=== PATIENT | male | born 1970 | race Caucasian/White ===

== ENCOUNTER 2016-08-30 04:47 | Emergency (ER) | payer BC, OTHER ==
[2016-08-30 05:02] VITALS: RESP 18
[2016-08-30] MEDS ORDERED: IBUPROFEN 400 MG TAB PO STA (05:22)
--- NOTE | 2016-08-30 05:28 | ED ---
Lower Extremity Injury HPI - General Chief Complaint: Extremity Injury, Lower Stated Complaint: fall [facility] Time Seen by Provider: 08/30/16 05:06 Source: patient Mode of arrival: ambulatory Limitations: no limitations - History of Present Illness Initial Comments: This patient is 46-year-old man who states that he was working tonight around 2 AM when he fell on a loading dock about 6 feet. He landed on his right foot and indicates that he has pain to the foot and ankle. He is not sure the exact mechanism that there was an inversion/eversion or other motion. The patient indicates pain from just above the malleoli down into the foot. He denies any loss of sensation. He states he is able to move his toes but has some pain when he moves his ankle. 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 Patient denies previous surgery to the foot or ankle. Patient states the pain is constant, aching, moderate, but worse if he attempts to bear weight. He has not noted any improving factors. MD Complaint: ankle injury, foot injury Onset/Timin -: hour(s) Injury: Ankle: Right, Foot: Right Type of Injury: unknown Place: work Severity: moderate Improves With: immobilization Worsens With: weight bearing Context: fall Associated Symptoms: able to partially bear weight - Related Data Home Medications Medication Instructions Recorded Confirmed Enalapril [Vasotec] 5 mg PO BID 08/30/16 08/30/16 Omeprazole 20 mg PO DAILY 08/30/16 08/30/16 metFORMIN HCL [Glucophage] 500 mg PO BID 08/30/16 08/30/16 Previous Rx's Medication Instructions Recorded Ibuprofen [Motrin] 800 mg PO Q8HR PRN #20 tab 08/30/16 Allergies Allergy/AdvReac Type Severity Reaction Status Date / Time No Known Allergies Allergy Verified 08/30/16 05:02 Review of Systems ROS Statement: Those systems with pertinent positive or pertinent negative responses have been documented in the HPI. ROS Other: All systems not noted in ROS Statement are negative. Constitutional: Denies: weakness Musculoskeletal: Reports: as per HPI, joint swelling, arthralgia. Denies: back pain Skin: Denies: rash Neurological: Denies: weakness, numbness Past Medical History Past Medical History: Diabetes Mellitus, GERD/Reflux, Hypertension History of Any Multi-Drug Resistant Organisms: None Reported Past Surgical History: Appendectomy, Cholecystectomy Past Psychological History: No Psychological Hx Reported Smoking Status: Never smoker Past Alcohol Use History: None Reported Past Drug Use History: None Reported General Exam Limitations: no limitations General appearance: alert, in no apparent distress GI/Abdominal exam: Present: other (Intact pedal pulses and normal capillary refill) Right Knee exam: Present: normal inspection, full ROM. Absent: tenderness, swelling Ankle exam: Present: tenderness, swelling. Absent: ecchymosis, deformity, crepitus, dislocation Foot/Toe exam: Present: tenderness, swelling. Absent: abrasion, laceration, ecchymosis, deformity, crepitus, dislocation Neurovascular tendon exam: Present: no vascular compromise. Absent: pulse deficit, abnormal cap refill, motor deficit, sensory deficit, pallor, abnormal 2 -point discrimination, decreased fine/light touch, significant pain with passive ROM of distal joint Neurological exam: Present: other (Sensation and motor function intact through the right foot). Absent: motor sensory deficit Skin exam: Present: warm, dry, intact, normal color. Absent: rash Course Vital Signs 08/30/16 04:58 Temperature 98.0 F Pulse Rate 104 H Respiratory 18 Rate Blood Pressure 130/85 O2 Sat by Pulse 98 Oximetry Disposition Clinical Impression: Ankle sprain and strain Disposition: HOME SELF-CARE Condition: Good Instructions: Ankle Sprain (ED) Prescriptions: Ibuprofen [Motrin] 800 mg PO Q8HR PRN #20 tab PRN Reason: Pain Referrals: Esteban Yee MD [Primary Care Provider] - 1-2 days
--- NOTE | 2016-08-30 06:20 | XR ---
EXAM: XR Right Tibia and Fibula, 2 Views. CLINICAL HISTORY: Ground-level fall, posterior right lower extremity pain. TECHNIQUE: Frontal and lateral views of the right tibia and fibula. COMPARISON: No relevant prior studies available. FINDINGS: Bones/joints: No displaced fracture. A patellar tendon enthesophyte is present. No dislocation. Soft tissues: Unremarkable. No radiopaque foreign body. IMPRESSION: 1. No displaced fracture. As some fractures may be occult on initial radiographs, if symptoms persist, recommend repeat evaluation in 10 days. 2. Please see right foot radiograph report for further detail.
--- NOTE | 2016-08-30 06:24 | XR ---
EXAM: XR Right Foot Complete, 3 or More Views. CLINICAL HISTORY: Ground level fall, pain TECHNIQUE: Frontal, lateral and oblique views of the right foot. COMPARISON: No relevant prior studies available. FINDINGS: Bones/joints: No displaced fracture or dislocation. Small calcific densities adjacent to the right medial malleolus likely reflect chronic ligamentous injury. Tiny avulsion fracture fragments would be considered less likely. Calcaneal enthesophytes are present. No tibiotalar joint effusion. Soft tissues: Unremarkable. No radiopaque foreign body. IMPRESSION: 1. No displaced fracture or traumatic malalignment. 2. Tiny calcific fragment adjacent to the medial malleolus likely reflect chronic ligamentous injury. Tiny avulsion fracture fragments would be considered much less likely, however, correlate with any focal tenderness to palpation. 3. No tibiotalar joint effusion. 4. As some fractures may be occult on initial radiographs, if symptoms persist, recommend repeat evaluation in 10 days.
[2016-08-30 06:46] VITALS: BP 127/70; PULSE 96; TEMP 97.8
== END 2016-08-30 07:44 | disposition home or self-care (01) ==
LOC: EC 04:47
DX: S93.401A Sprain of unspecified ligament of right ankle, initial encounter (principal); S99.921A Unspecified injury of right foot, initial encounter; I10 Essential (primary) hypertension; K21.9 Gastro-esophageal reflux disease without esophagitis; E11.9 Type 2 diabetes mellitus without complications; Z79.84 Long term (current) use of oral hypoglycemic drugs; Z79.899 Other long term (current) drug therapy; W17.89XA Other fall from one level to another, initial encounter; Y92.69 Other specified industrial and construction area as the place of occurrence of the external cause; Y99.0 Civilian activity done for income or pay
CPT/HCPCS: 99283

== ENCOUNTER → 2016-09-13 | Outpatient (CLI) | payer BC, OTHER ==
--- NOTE | 2016-09-15 12:45 | MR ---
Right ankle and right foot MRI HISTORY: Sprain right foot Multiplanar multisequence imaging obtained through the right foot and right ankle Correlation to right leg and right foot 30 August 2016 There is extensive subcutaneous edema present. There is a blanche tear of the Achilles tendon approximately 4 to 5 cm from the insertion on the java analyst ior calcaneus. Abnormal thickening of the tendon is present with mixed heterogeneous signal. Flexor a nd extensor tendons, peroneal longus and brevis tendons are intact. No evident joint effusion. Bone m arrow signal is maintained. Articular cartilage signal is normal. There is a plantar calcaneal spur. Plantar aponeurosis is intact. No Lisfranc fracture dislocation. IMPRESSION: Achilles tendon rupture
== END ==
LOC: RADMRIMAIN 19:34
PROVIDERS: ATTEND Emergency Medicine
DX: S86.011A Strain of right Achilles tendon, initial encounter (principal)

== ENCOUNTER 2016-10-22 17:44 | Emergency (ER) | payer BC, OTHER ==
[2016-10-22 17:57] VITALS: RESP 18
--- NOTE | 2016-10-22 18:42 | ED ---
General Adult HPI - General Chief complaint: Extremity Injury, Lower Stated complaint: positive for DVT Time Seen by Provider: 10/22/16 18:28 Source: patient, family, RN notes reviewed Mode of arrival: wheelchair Limitations: no limitations - History of Present Illness Initial comments: Patient is a pleasant 46-year-old male presenting to the emergency Department with DVT. Patient did have superficial thrombosis approximately 5 or 6 weeks ago and was treated with Xarelto for one week. Following that patient had Achilles tendon repair and was on Lovenox shots for a couple of weeks. Patient is not on any anticoagulation for the past few weeks. Patient has had swelling of his right leg over the past couple of days. Patient did see his orthopedic surgeon, Dr. Carpio today who did order ultrasound. Ultrasound was reported as positive. Patient states patient states his leg does feel somewhat better following cast removal. Patient denies any chest pain or dyspnea. - Related Data Home Medications Medication Instructions Recorded Confirmed Omeprazole 20 mg PO BID 08/30/16 10/22/16 Cholecalciferol [Vitamin D3] 1,000 unit PO DAILY 09/06/16 10/22/16 Ramipril [Altace] 5 mg PO BID 09/06/16 10/22/16 metFORMIN HCL ER [Glucophage Xr] 500 mg PO BID 10/22/16 10/22/16 Previous Rx's Medication Instructions Recorded Rivaroxaban [Xarelto Starter Pack] 1 each PO DIRECTED #1 package 10/22/16 Allergies Allergy/AdvReac Type Severity Reaction Status Date / Time No Known Allergies Allergy Verified 10/22/16 18:32 Review of Systems ROS Statement: Those systems with pertinent positive or pertinent negative responses have been documented in the HPI. ROS Other: All systems not noted in ROS Statement are negative. Constitutional: Denies: fever Eyes: Denies: eye pain ENT: Denies: ear pain Respiratory: Denies: cough, dyspnea Cardiovascular: Denies: chest pain, palpitations Endocrine: Denies: fatigue Gastrointestinal: Denies: abdominal pain Genitourinary: Denies: dysuria Musculoskeletal: Denies: back pain Skin: Denies: rash Neurological: Denies: headache Past Medical History Past Medical History: Diabetes Mellitus, GERD/Reflux, Hypertension History of Any Multi-Drug Resistant Organisms: None Reported Past Surgical History: Appendectomy, Cholecystectomy Additional Past Surgical History / Comment(s): right achilles tendon repair Past Psychological History: No Psychological Hx Reported Smoking Status: Never smoker Past Alcohol Use History: None Reported Past Drug Use History: None Reported General Exam Limitations: no limitations General appearance: alert, in no apparent distress Head exam: Present: atraumatic Eye exam: Present: normal appearance, PERRL ENT exam: Present: normal oropharynx Neck exam: Present: normal inspection Respiratory exam: Present: normal lung sounds bilaterally Cardiovascular Exam: Present: regular rate, normal rhythm GI/Abdominal exam: Present: soft. Absent: tenderness Extremities exam: Present: other (Right leg with food. There is minimal swelling of the visualized leg with mild discomfort. Distally cap refill less than 2 seconds. Patient is able to move toes. Good sensation.) Neurological exam: Present: alert. Absent: motor sensory deficit Psychiatric exam: Present: normal affect, normal mood Skin exam: Present: normal color Course Vital Signs 10/22/16 10/22/16 17:54 19:06 Temperature 98.7 F Pulse Rate 105 H 98 Respiratory 18 18 Rate Blood Pressure 114/81 134/60 O2 Sat by Pulse 98 97 Oximetry - Reevaluation(s) Reevaluation #1: 10/22/16 18:56 Case was discussed with Dr. Méndez, covering for Dr. Carpio who defers treatment to medicine. Case was discussed with Dr. Horta, covering for Dr. Yee. She recommends Xarelto twice a day 15 mg for 21 days then further medication per primary care physician. She also recommends close follow-up. 10/22/16 19:10 Recheck heart rate 98. Disposition Clinical Impression: Deep vein thrombosis (DVT) of right lower extremity Disposition: HOME SELF-CARE Condition: Stable Instructions: Deep Venous Thrombosis (ED) Additional Instructions: Continue Xarelto, prescription written. Please follow-up with Dr. Carpio and your primary care physician this week. Return for chest pain or difficulty breathing, increased leg swelling, worsening symptoms or any other concerns. Prescriptions: Rivaroxaban [Xarelto Starter Pack] 1 each PO DIRECTED #1 package Referrals: Esteban Yee MD [Primary Care Provider] - 1-2 days Osvaldo Carpio MD [Medical Doctor] - 1-2 days Time of Disposition: 18:57
[2016-10-22] MEDS ORDERED: RIVAROXABAN 15 MG TAB PO STA (19:10)
[2016-10-22 19:52] VITALS: BP 136/72; PULSE 97; TEMP 98.1
== END 2016-10-22 19:30 | disposition home or self-care (01) ==
LOC: EC 17:44
DX: I82.401 Acute embolism and thrombosis of unspecified deep veins of right lower extremity (principal); E11.9 Type 2 diabetes mellitus without complications; K21.9 Gastro-esophageal reflux disease without esophagitis; I10 Essential (primary) hypertension; Z79.84 Long term (current) use of oral hypoglycemic drugs; Z79.899 Other long term (current) drug therapy
CPT/HCPCS: 99283

== ENCOUNTER → 2016-10-22 | Outpatient (CLI) | payer OTHER ==
--- NOTE | 2016-10-22 17:45 | US ---
EXAMINATION TYPE: US venous doppler duplex LE DATE OF EXAM: 10/22/2016 5:18 PM COMPARISON: 09/06/2016 CLINICAL HISTORY: I80.9 Phlebitis/thrombophlebitis, Z86.728 Hx embolism. Right leg pain and swelling post achilles tendon repair SIDE PERFORMED: Bilateral TECHNIQUE: The lower extremity deep venous system is examined utilizing real time linear array sonog shazia with graded compression, doppler sonography and color-flow sonography. VESSELS IMAGED: External Iliac Vein (EIV) Common Femoral Vein Deep Femoral Vein Greater Saphenous Vein * Femoral Vein Popliteal Vein Proximal Calf Veins (* superficial vessels) Right Leg: Positive for DVT, extensive from groin through calf prox veins. Left Leg: Negative for DVT IMPRESSION: Grayscale, color doppler, spectral doppler imaging performed of the deep veins of the lo wer extremities. There is normal flow, compressibility, vascular waveforms bilaterally. There is ev idence of acute deep venous thrombosis in the right leg. This appears new compared to the recent exam of 09/06/2016. No evidence of deep venous thrombosis in the left leg.
== END ==
LOC: RADUSMAIN 16:51
PROVIDERS: ATTEND Orthopaedic Surgery
DX: S86.001A Unspecified injury of right Achilles tendon, initial encounter (principal); I82.401 Acute embolism and thrombosis of unspecified deep veins of right lower extremity
CPT/HCPCS: 93970

== ENCOUNTER → 2017-06-09 | Outpatient (CLI) | payer BC ==
[2017-06-09 10:20] LABS: Basophils % (A) 0 %; Eosinophils # (A) 0.1 k/uL (0-0.7); Eosinophils % (A) 2 %; HCT 43.3 % (39.0-53.0); HGB 14.6 gm/dL (13.0-17.5); Lymphocytes # (A) 1.9 k/uL (1.0-4.8); Lymphocytes % (A) 23 %; MCH 30.8 pg (25.0-35.0); MCHC 33.9 g/dL (31.0-37.0); Mean Platelet Volume 6.9; Monocytes # (A) 0.4 k/uL (0-1.0); Monocytes % (A) 5 %; Neutrophils # (A) 5.6 k/uL (1.3-7.7); Neutrophils % (A) 68 %; Platelet Count 283 k/uL (150-450); RBC 4.76 m/uL (4.30-5.90); RDW 11.8 % (11.5-15.5); WBC 8.3 k/uL (3.8-10.6)
[2017-06-09 10:30] LABS: Anion Gap 10 mmol/L; Blood Urea Nitrogen 18 mg/dL (9-20); Calcium 9.4 mg/dL (8.4-10.2); Carbon Dioxide 28 mmol/L (22-30); Chloride 100 mmol/L (98-107); Glucose 113 mg/dL (74-99); Potassium 4.8 mmol/L (3.5-5.1); Sodium 138 mmol/L (137-145)
== END | disposition home or self-care (01) ==
LOC: LABPAT 09:30
PROVIDERS: ATTEND Physician Assistant
DX: Z01.812 Encounter for preprocedural laboratory examination (principal); N20.0 Calculus of kidney; E11.9 Type 2 diabetes mellitus without complications
CPT/HCPCS: 36415; 80048; 85025

== ENCOUNTER 2017-06-16 08:05 | Day surgery (SDC) | payer BC ==
[2017-06-05 16:33] VITALS: BMI 32.5
[~2017-06-16 08:05] MED LIST: DEXAMETHASONE SOD PHOSPHATE 10 MG/ML 1 ML VIAL IV ONE; HYDROmorphone 0.5 MG/0.5 ML SYRINGE IVP PRN; LACTATED RINGERS 1,000 ML IV SCH; ONDANSETRON 4 MG/2 ML VIAL IVP ONE; Pre Op ABX Message 1 EACH MISC MISCELLANE ONE
--- NOTE | 2017-06-16 08:06 | XR ---
EXAMINATION TYPE: XR KUB DATE OF EXAM: 06/16/2017 CLINICAL DATA: 46-year-old male kidney stones, presurgical lithotripsy, [facility] COMPARISON: None FINDINGS: Nonobstructive bowel gas pattern. Lung bases are clear. Cholecystectomy clips. Mild to moderate stool in the right hemicolon. 4 calcifications in the left mid abdomen measuring up to 1.5 cm. Multiple pelvic phleboliths, left greater than right. IMPRESSION: Left-sided nephrolithiasis. 4 calculi are present, largest measuring 1.5 cm.
[2017-06-16 08:18] VITALS: RESP 18; TEMP 97.8
[2017-06-16 08:41] LABS: Glucose,Whole Blood 135 mg/dL (75-99)
[2017-06-16] MEDS ORDERED: KETAMINE 10 MG/ML 20 ML VIAL ONE (09:40)
[2017-06-16] MEDS ORDERED: MIDAZOLAM 2 MG/2 ML VIAL ONE (09:40)
[2017-06-16] MEDS ORDERED: GLYCOPYRROLATE 0.2 MG/ML 2 ML VIAL ONE (09:40)
[2017-06-16] MEDS ORDERED: PROPOFOL 10 MG/ML 20 ML VIAL IV ONE (09:40)
[2017-06-16] MEDS ORDERED: fentaNYL (PF) 50 MCG/ML 2 ML AMP ONE (09:40)
--- NOTE | 2017-06-16 10:36 | P.OP ---
Date of Procedure: 06/16/17 Preoperative Diagnosis: Left renal calculi Postoperative Diagnosis: Left renal calculi Procedure(s) Performed: Extracorporal shockwave lithotripsy-left renal calculus Anesthesia: MAC Surgeon: Robe Smith Estimated Blood Loss (ml): 0 Pathology: none sent Condition: stable Disposition: PACU Indications for Procedure: The patient is a 46-year-old male who was noted to have several left renal calculi on renal ultrasound performed in 08/2016. KUB shows a 15x8 mm calculus in the left renal pelvis and several smaller stones in the left lower pole. Treatment options were reviewed with Dr Lagunas and ESWL has been chosen. Description of Procedure: The patient was taken to the lithotripsy room and placed in the supine position. The 8 x 12 mm calculus in the lower pole of left kidney was localized using biplanar fluoroscopy. Intravenous sedation was given. Lithotripsy was performed using the Dornier compact delta unit. The patient received a total of 2500 shocks which were gradually increased to level 5. A 2 minute pause was given after 200 shocks. It was unclear whether the calculus fragmented. The patient tolerated the procedure well and was returned to the recovery room awake and in satisfactory condition. A KUB will be obtained in 4 days when he is seen by Dr. Lagunas.
[2017-06-16 11:17] VITALS: BP 127/87; PULSE 78
== END 2017-06-16 11:55 | disposition home or self-care (01) ==
LOC: ORWHC2ENDO 08:05
PROVIDERS: ATTEND Urology
DX: N20.0 Calculus of kidney (principal); I10 Essential (primary) hypertension; K21.9 Gastro-esophageal reflux disease without esophagitis; E11.9 Type 2 diabetes mellitus without complications; Z79.84 Long term (current) use of oral hypoglycemic drugs; Z79.899 Other long term (current) drug therapy; Z86.718 Personal history of other venous thrombosis and embolism
CPT/HCPCS: 50590; 74018; J2250; J1100; J2405; J3010; J2704

== ENCOUNTER → 2017-06-19 | Outpatient (CLI) | payer BC ==
--- NOTE | 2017-06-19 11:35 | XR ---
EXAMINATION TYPE: XR abdomen 1V DATE OF EXAM: 06/19/2017 CLINICAL DATA: 46-year-old male left renal calculus, status post lithotripsy 06/16/2017, [facility] COMPARISON: 06/16/2017 FINDINGS: Nonobstructive bowel gas pattern. Moderate stool in the right. Cholecystectomy clips. Interval fragmentation of the mid pole renal calculi on the left. The largest 1.5 cm calculus is brok en into small pieces now with an aggregate dimension of 1.9 cm and individual calculi measuring up to 5 mm. Left greater than right pelvic phleboliths are unchanged. IMPRESSION: Interval fragmentation of a left-sided renal calculi. Aggregate dimension is 1.9 cm with individual c alculi measuring up to 5 mm.
== END | disposition home or self-care (01) ==
LOC: RADXRMAIN 10:25
PROVIDERS: ATTEND Urology
DX: N20.0 Calculus of kidney (principal)
CPT/HCPCS: 74018

== ENCOUNTER → 2017-07-03 | Outpatient (CLI) | payer BC ==
--- NOTE | 2017-07-03 10:16 | XR ---
EXAMINATION TYPE: XR KUB DATE OF EXAM: 07/03/2017 9:47 AM CLINICAL HISTORY: Lithotripsy 2 weeks prior with 3 known left-sided renal calculi. TECHNIQUE: Single supine KUB image of the abdomen is obtained. COMPARISON: 06/16/2017. FINDINGS: The previously seen 1.5 cm largest left renal calculus appears fragmented into at least 3 s tones with the largest portion measuring 8 mm. Additional 3 renal calculi inferior to this are unchan ged in position and size. Cholecystectomy clips are noted within the right upper quadrant. No right r enal calculi are seen. Phlebolith noted within the low pelvis are similar to the prior exam with no n ew calcifications. Osseous structures appear intact with multilevel mild to moderate degenerative thuy nges of the thoracic spine an mild bilateral femoral acetabular arthropathy. IMPRESSION: 1. The previously seen largest left renal calculus now appears fragmented into at least [address] pearl. No new calculi along the course of the left ureter or within the low pelvis to suggest passage. 2. The remaining 3 left renal calculi inferior to the largest calculus are unchanged in size and morp hology from the prior.
== END | disposition home or self-care (01) ==
LOC: RADXRMAIN 09:18
PROVIDERS: ATTEND Urology
DX: N20.0 Calculus of kidney (principal)
CPT/HCPCS: 74018

== ENCOUNTER 2017-07-21 05:50 | Day surgery (SDC) | payer BC ==
[2017-07-16 09:43] VITALS: BMI 31.5
[~2017-07-21 05:50] MED LIST changes: -DEXAMETHASONE SOD PHOSPHATE 10 MG/ML 1 ML VIAL IV ONE; -HYDROmorphone 0.5 MG/0.5 ML SYRINGE IVP PRN; -ONDANSETRON 4 MG/2 ML VIAL IVP ONE
[2017-07-21 06:22] VITALS: TEMP 97.3
[2017-07-21 06:42] LABS: Glucose,Whole Blood 136 mg/dL (75-99)
[2017-07-21] MEDS ORDERED: LIDOCAINE 1% 20 ML VIAL (10MG/ML) FOR IV START INTRADERMA ONE (06:50)
[2017-07-21] MEDS ORDERED: DEXAMETHASONE SOD PHOS (MDV) 100 MG/10 ML VIAL IV ONE (06:57)
[2017-07-21] MEDS ORDERED: ONDANSETRON 4 MG/2 ML VIAL IVP ONE (06:58)
[2017-07-21] MEDS ORDERED: SCOPOLAMINE 1.5MG/72HR PATCH TRANSDERM ONE (07:01)
--- NOTE | 2017-07-21 07:21 | XR ---
EXAMINATION TYPE: XR KUB DATE OF EXAM: 07/21/2017 CLINICAL DATA: 46-year-old male preop lithotripsy, left-sided kidney stones, [facility] COMPARISON: 07/03/2017 FINDINGS: Nonobstructive bowel gas pattern. Moderate stool. Cholecystectomy clips. Multiple calculi are present in the left kidney with aggregate dimension of 2.3 cm. A second grouping of 3 small calculi measuring 4 mm and smaller present just below. Not significant changed from prior exam. Multiple phleboliths in the pelvis, particularly on the left. IMPRESSION: Left-sided nephrolithiasis with a large cluster of small calculi showing an aggregate dimension of 2. 3 cm. A second smaller group of 3 calculi are present just below.
[2017-07-21] MEDS ORDERED: MIDAZOLAM 2 MG/2 ML VIAL ONE (07:44)
[2017-07-21] MEDS ORDERED: PROPOFOL 10 MG/ML 20 ML VIAL IV ONE (07:44)
[2017-07-21] MEDS ORDERED: fentaNYL (PF) 50 MCG/ML 2 ML AMP ONE (07:44)
[2017-07-21] MEDS ORDERED: KETAMINE 10 MG/ML 20 ML VIAL ONE (07:44)
--- NOTE | 2017-07-21 08:30 | P.OP ---
Date of Procedure: 07/21/17 Preoperative Diagnosis: Left renal calculi Postoperative Diagnosis: Same Procedure(s) Performed: Left extracorporal shockwave lithotripsy (ESWL) Anesthesia: MAC Surgeon: Ricardo Cheng Estimated Blood Loss (ml): 0 IV fluids (ml): 450 Pathology: none sent Condition: stable Disposition: PACU Indications for Procedure: He is a 46 year old male with surgery in August 2016 due to [place]'s disruption after a fall. He also developed DVT and was on Xarelto for 6 months. He is no longer on it. He had a renal ultrasound done, showing bilateral stones. He then had KUB, showing a 1.4 cm stone on the left, with 2-3 smaller stones ranging 4- 6 mm. He had left ESWL for the large 1.4 cm stone 06/16/2017. He passed several fragments. KUB 06/19/2017 showed a tiny fragment in the left ureter, and several 5-6 mm fragments in the left kidney. KUB continues to show multiple left calculi, with a conglomerate of calculi measuring approximately 22 mm in diameter. He comes for repeat ESWL. Operative Findings: Fragmentation is noted. Description of Procedure: The patient was taken to the operating room and placed on the Dornier Compact Delta II lithotripter in the supine position. The calculi were seen on biplanar fluoroscopy. Once the patient was properly positioned and sedated, lithotripsy was performed. The energy level was gradually increased per protocol, to an energy level of 5. After 200 shocks were administered, a 2 minute pause was instituted per protocol. A total of 2500 shocks were given at a rate of 80 shocks per minute. Fluoroscopy was utilized at a minimum to ensure proper positioning and determine the treatment status. The calculi changed in appearance, consistent with fragmentation. The patient tolerated the procedure well was taken to the recovery room in stable condition. Instructions were given to strain the urine, and the patient will follow-up within one week.
[2017-07-21 08:48] LABS: Glucose,Whole Blood 143 mg/dL (75-99)
[2017-07-21 09:18] VITALS: BP 114/79; PULSE 71; RESP 16
== END 2017-07-21 09:38 | disposition home or self-care (01) ==
LOC: ORWHC2ENDO 05:50
PROVIDERS: ATTEND Urology
DX: N20.0 Calculus of kidney (principal); I10 Essential (primary) hypertension; E11.9 Type 2 diabetes mellitus without complications; K21.9 Gastro-esophageal reflux disease without esophagitis; Z79.84 Long term (current) use of oral hypoglycemic drugs; Z79.891 Long term (current) use of opiate analgesic; Z79.899 Other long term (current) drug therapy; Z86.718 Personal history of other venous thrombosis and embolism
CPT/HCPCS: 74018; 50590; J2250; J2405; J3010; J1100; J2704

== ENCOUNTER → 2017-07-24 | Outpatient (CLI) | payer BC ==
--- NOTE | 2017-07-24 09:55 | XR ---
EXAMINATION TYPE: XR KUB DATE OF EXAM: 07/24/2017 CLINICAL DATA: 47 year-old male left renal calculus, follow-up lithotripsy, [facility] COMPARISON: 07/21/2017 FINDINGS: Nonobstructive bowel gas pattern. Moderate stool in the right hemicolon. Cholecystectomy clips. Clustered calcifications left mid kidney continue to show an aggregate dimension of 2.3 cm. Small 6 m m cluster of calculi just below in the left kidney also redemonstrated. Left-sided pelvic phleboliths. IMPRESSION: Relatively stable exam with left-sided nephrolithiasis.
== END | disposition home or self-care (01) ==
LOC: RADXRMAIN 08:11
PROVIDERS: ATTEND Urology
DX: N20.0 Calculus of kidney (principal)
CPT/HCPCS: 74018

== ENCOUNTER → 2017-09-04 | Outpatient (CLI) | payer BC ==
--- NOTE | 2017-09-04 11:35 | XR ---
EXAMINATION TYPE: XR KUB DATE OF EXAM: 09/04/2017 CLINICAL DATA: 47-year-old male lithotripsy for left-sided stone, [facility] COMPARISON: 07/24/2017 FINDINGS: Nonobstructive bowel gas pattern. Moderate stool in the right. Cholecystectomy clips. Stable nonspeci fic round calcification right lateral midabdomen. There has been interval diminution in aggregate dimension of the left-sided renal calculi currently a t 1.1 cm versus 2.3 cm, previously. An additional smaller adjacent calculi remain. Multiple pelvic phleboliths, particularly on the left. IMPRESSION: Overall smaller aggregate dimension of the left-sided renal calculi currently 1.1 cm versus 2.3 cm, p reviously. Findings suggest some interval passage of stones.
== END | disposition home or self-care (01) ==
LOC: RADXRMAIN 08:39
PROVIDERS: ATTEND Physician Assistant
DX: N20.0 Calculus of kidney (principal)
CPT/HCPCS: 74018

== ENCOUNTER → 2017-12-08 | Outpatient (CLI) | payer BC ==
[2017-12-08 10:27] LABS: Basophils % (A) 0 %; Eosinophils # (A) 0.2 k/uL (0-0.7); Eosinophils % (A) 2 %; HCT 45.3 % (39.0-53.0); HGB 15.6 gm/dL (13.0-17.5); Lymphocytes # (A) 1.8 k/uL (1.0-4.8); Lymphocytes % (A) 25 %; MCH 31.5 pg (25.0-35.0); MCHC 34.4 g/dL (31.0-37.0); MCV 91.6 fL (80.0-100.0); Mean Platelet Volume 7.3; Monocytes # (A) 0.4 k/uL (0-1.0); Monocytes % (A) 6 %; Neutrophils # (A) 4.5 k/uL (1.3-7.7); Neutrophils % (A) 64 %; Platelet Count 176 k/uL (150-450); RBC 4.94 m/uL (4.30-5.90); RDW 13.2 % (11.5-15.5)
[2017-12-08 10:35] LABS: Anion Gap 11 mmol/L; Blood Urea Nitrogen 21 mg/dL (9-20); Calcium 9.3 mg/dL (8.4-10.2); Carbon Dioxide 26 mmol/L (22-30); Chloride 102 mmol/L (98-107); Glucose 127 mg/dL (74-99); Potassium 5.2 mmol/L (3.5-5.1); Sodium 139 mmol/L (137-145)
== END | disposition home or self-care (01) ==
LOC: LABPAT 08:51
DX: Z01.812 Encounter for preprocedural laboratory examination (principal); N20.0 Calculus of kidney; E11.9 Type 2 diabetes mellitus without complications
CPT/HCPCS: 36415; 80048; 85025

== ENCOUNTER 2017-12-15 05:53 | Day surgery (SDC) | payer BC ==
[2017-12-11 14:05] VITALS: BMI 33.0
[~2017-12-15 05:53] MED LIST changes: +LIDOCAINE 1% 20 ML VIAL (10MG/ML) FOR IV START INTRADERMA PRN
--- NOTE | 2017-12-15 06:39 | XR ---
EXAMINATION TYPE: XR KUB DATE OF EXAM: 12/15/2017 COMPARISON: 09/04/2017 HISTORY: Preop lithotripsy TECHNIQUE: 2 views FINDINGS: There are a collection of calcifications over the lower pole left kidney. There are clips f rom cholecystectomy. Bowel gas pattern is normal. There is no sign of intestinal obstruction or pneum operitoneum. Fecal pattern is normal. There are multiple calcifications in the pelvis bilaterally mor e on the left side. Most of these are probably phleboliths. Distal ureteral calculus is possible. IMPRESSION: Multiple left renal calculi without change compared to last exam. Nonacute abdomen.
[2017-12-15 06:52] VITALS: RESP 16; TEMP 98.2
[2017-12-15 07:12] LABS: Glucose,Whole Blood 131 mg/dL (75-99)
--- NOTE | 2017-12-15 07:35 | P.GSHP ---
History of Present Illness H&P Date: 12/15/17 Chief Complaint: Left renal calculi The patient is a 47-year-old white male with a history of recurrent urolithiasis. He has undergone ESWL on multiple occasions, and has residual left renal calculi. He now comes for repeat ESWL. He is currently comfortable. - Constitutional Constitutional: Denies chills, Denies fever - Gastrointestinal Gastrointestinal: Denies nausea, Denies vomiting - Genitourinary (Female) Genitourinary: Reports kidney stones, Denies hematuria Past Medical History Past Medical History: Diabetes Mellitus, Deep Vein Thrombosis (DVT), GERD/Reflux , Hypertension Additional Past Medical History / Comment(s): DVT-10/22/16, kidney stones, occ vertigo History of Any Multi-Drug Resistant Organisms: None Reported Past Surgical History: Appendectomy, Cholecystectomy, Orthopedic Surgery Additional Past Surgical History / Comment(s): right achilles tendon repair, lithotripsy Past Anesthesia/Blood Transfusion Reactions: Motion Sickness Smoking Status: Never smoker - Past Family History Mother Family Medical History: No Reported History Medications and Allergies Home Medications Medication Instructions Recorded Confirmed Type Omeprazole 20 mg PO BID 08/30/16 12/11/17 History Cholecalciferol [Vitamin D3] 1,000 unit PO DAILY 09/06/16 12/11/17 History Ramipril [Altace] 5 mg PO BID 09/06/16 12/11/17 History metFORMIN HCL ER [Glucophage Xr] 500 mg PO BID 10/22/16 12/11/17 History HYDROcodone/APAP 5-325MG [[place] 1 tab PO Q6HR PRN #10 tab 06/16/17 12/15/17 Rx 5-325] Tamsulosin [Flomax] 0.4 mg PO DAILY #30 cap 07/21/17 12/11/17 Rx Allergies Allergy/AdvReac Type Severity Reaction Status Date / Time No Known Allergies Allergy Verified 12/15/17 06:42 Surgical - Exam Vital Signs Temp Pulse Resp BP Pulse Ox 98.2 F 82 16 120/80 96 12/15/17 06:51 12/15/17 06:51 12/15/17 06:51 12/15/17 06:51 12/15/17 06:51 - General well developed, well nourished, no distress - Neck no masses, trachea midline - Respiratory normal respiratory effort - Abdomen Abdomen: soft, non tender, no guarding, no rigid, no rebound - Psychiatric oriented to time, oriented to person, oriented to place, speech is normal, memory intact Results - Labs Abnormal Lab Results - Last 24 Hours (Table) 12/15/17 Range/Units 07:00 POC Glucose (mg/dL) 131 H (75-99) mg/dL - Imaging Abdominal x-ray: report reviewed, image reviewed Assessment and Plan (1) Calculus of kidney Current Visit: Yes Status: Acute Code(s): N20.0 - CALCULUS OF KIDNEY SNOMED Code(s): 46929544 Plan: Left ESWL. The patient has previously undergone ESWL and is very familiar with the procedure. He understands potential risks to include anesthesia, renal contusion, perinephric hematoma, treatment failure, incomplete fragmentation, and [place]. He understands the possible need for secondary treatment.
[2017-12-15] MEDS ORDERED: PROPOFOL 10 MG/ML 20 ML VIAL IV ONE (07:39)
[2017-12-15] MEDS ORDERED: MIDAZOLAM 2 MG/2 ML VIAL ONE (07:39)
[2017-12-15] MEDS ORDERED: fentaNYL (PF) 50 MCG/ML 2 ML AMP ONE (07:39)
[2017-12-15 09:08] VITALS: BP 106/73; PULSE 75
--- NOTE | 2017-12-25 06:23 | P.OP ---
Date of Procedure: 12/15/17 Preoperative Diagnosis: Left renal calculi Postoperative Diagnosis: Same Procedure(s) Performed: Left extracorporeal shockwave lithotripsy (ESWL) Anesthesia: MAC Surgeon: Ricardo Cheng Estimated Blood Loss (ml): 0 IV fluids (ml): 400 Pathology: none sent Condition: stable Disposition: PACU Indications for Procedure: The patient is a 47-year-old white male with a history of recurrent urolithiasis. KUB x-ray shows multiple left lower pole renal calculi, the largest of which measures 6 mm in size. He comes for ESWL. Operative Findings: Probable fragmentation Description of Procedure: The patient was taken to the operating room and placed on the Dornier Compact Delta II lithotripter in the supine position. The calculi were seen on biplanar fluoroscopy. Once the patient was properly positioned and sedated, lithotripsy was performed. The energy level was gradually increased per protocol, to an energy level of 5. After 200 shocks were administered, a 2 minute pause was instituted per protocol. A total of 2500 shocks were given at a rate of 80 shocks per minute. Fluoroscopy was utilized at a minimum to ensure proper positioning and determine the treatment status. The appearance of the calculus appeared to change, suggesting fragmentation had occurred. The patient tolerated the procedure well was taken to the recovery room in stable condition. Instructions were given to strain the urine, and the patient will follow-up within one week.
== END 2017-12-15 09:30 | disposition home or self-care (01) ==
LOC: ORWHC2ENDO 05:53
PROVIDERS: ATTEND Urology
DX: N20.0 Calculus of kidney (principal); Z87.442 Personal history of urinary calculi; E11.9 Type 2 diabetes mellitus without complications; K21.9 Gastro-esophageal reflux disease without esophagitis; I10 Essential (primary) hypertension; Z79.84 Long term (current) use of oral hypoglycemic drugs; Z79.899 Other long term (current) drug therapy; Z86.718 Personal history of other venous thrombosis and embolism
CPT/HCPCS: 84132; 74018; 50590; J2250; J3010; J2704

== ENCOUNTER → 2017-12-22 | Outpatient (CLI) | payer BC ==
--- NOTE | 2017-12-22 12:38 | XR ---
EXAMINATION TYPE: XR abdomen 1V DATE OF EXAM: 12/22/2017 CLINICAL DATA: 47 year-old male left renal calculus, [facility] COMPARISON: 12/15/2017 FINDINGS: Nonobstructive bowel gas pattern. Moderate stool in the right side of the abdomen. Cholecystectomy cl ips. Supine imaging limited for assessment of free air. Multiple phleboliths in the pelvis, left grea ter than right. More fragmentary appearance to the left renal calculi. Cluster of numerous tiny calculi measure up to 1.1 cm and there are approximately 3 additional 3 mm calculi just adjacent. IMPRESSION: Now fragmentary appearance to the left renal calculi. Aggregate dimension is 1.1 cm. Some adjacent pu nctate 3 mm calculi are present as well.
== END | disposition home or self-care (01) ==
LOC: RADXRMAIN 08:42
PROVIDERS: ATTEND Urology
DX: N20.0 Calculus of kidney (principal)
CPT/HCPCS: 74018

== ENCOUNTER → 2018-01-21 | Outpatient (CLI) | payer BC ==
--- NOTE | 2018-01-21 12:56 | XR ---
Abdomen HISTORY: Left renal stone Frontal view of the abdomen submitted on 2 images and correlated prior exam 12/15/2017, 12/19/2017 Left-sided renal calculi at the lower pole are present and show similar appearance to prior exam, the re are likely fragments present at the lower pole collecting system. Surgical clips are present in the right upper quadrant. Retained fecal debris present within the colo n. Scattered phleboliths in the pelvis. Possible calcified diverticulum in the right hemiabdomen. IMPRESSION: Findings similar to prior exam.
== END | disposition home or self-care (01) ==
LOC: RADXRMAIN 10:06
PROVIDERS: ATTEND Urology
DX: N20.0 Calculus of kidney (principal)
CPT/HCPCS: 74018

== ENCOUNTER → 2020-05-11 | Outpatient (CLI) | payer BC | END | disposition home or self-care (01) | LOC: LABWHC1 13:38 | PROVIDERS: ATTEND Emergency Medicine | DX: Z20.828 Contact with and (suspected) exposure to other viral communicable diseases (principal) | CPT/HCPCS: U0003; C9803 ==

== ENCOUNTER → 2020-11-13 | Outpatient (CLI) | payer BC ==
--- NOTE | 2020-11-13 13:49 | NM ---
EXAMINATION TYPE: [place] gastric emptying static DATE OF EXAM: 11/13/2020 COMPARISON: NONE HISTORY: Nausea and vomiting. Following administration of 2 mCi Tc 99m Sulfur Colloid with 4 oz. egg whites, 2 pieces of toast, and 5 oz. of water, projection images of the abdomen were obtained 10 minutes post ingestion. Patient Emptying Values 1 Hour 51 % 2 Hours 86 % 3 Hours 95 % 4 Hours 100 % IMPRESSION: Gastric emptying: No scintigraphic evidence for gastroparesis. Gastric emptying normal percentage values: 30 minutes: <70% of retention (> 30% emptying) suggests abnormally fast emptying. 60 minutes: <90% retention (>10% emptying) is normal; less than 30% retention (>70% emptying) suggest s abnormally rapid emptying. 90 minutes: <65% retention (> 35% emptying) is normal. 120 minutes: <60% retention (> 40% emptying) is normal. 180 minutes: <30% retention (> 70% emptying) is normal. Gastric emptying T-1/2: Solid: The normal range is 60-105 minutes Liquid only: Normal range is 10-45 minutes. Liquid only-children: At 60 minutes, normal range is 44-58 % . Liquid only-infants: At 60 minutes, normal range is 32-64 %. Additional references: Gastric Emptying Scintigraphy [email or web address]://[email or web address]
== END | disposition home or self-care (01) ==
LOC: RADNMMAIN 07:02
PROVIDERS: ATTEND Internal Medicine Gastroenterology
DX: R11.2 Nausea with vomiting, unspecified (principal)
CPT/HCPCS: 78264; A9541

== ENCOUNTER 2020-12-27 06:16 | Day surgery (SDC) | payer BC ==
[2020-12-25 14:57] VITALS: BMI 30.8
--- NOTE | 2020-12-26 19:04 | P.GSHP ---
History of Present Illness H&P Date: 12/26/20 50 yo male with ahistory of stones who presented to [facility] er with llq pain. He was found to have a 2 cm bladder stone, large volume of left renal stones and a tiny right ureteral stone without hydronephrosis. He passed the right ureteral stone. He comes for a cystolithotripsy to the bladder stone. He understands he will eventually need a left pcnl to the renal stones. - Constitutional Constitutional: Denies chills, Denies fever - EENT Eyes: denies blurred vision, denies pain Ears, nose, mouth and throat: Denies headache, Denies sore throat - Cardiovascular Cardiovascular: Denies chest pain, Denies shortness of breath - Respiratory Respiratory: Denies cough, Denies 7 - Gastrointestinal Gastrointestinal: Denies abdominal pain, Denies diarrhea, Denies nausea, Denies vomiting - Genitourinary (Female) Genitourinary: Denies dysuria, Denies hematuria - Genitourinary (Male) Genitourinary: Denies dysuria, Denies hematuria - Musculoskeletal Musculoskeletal: Denies myalgias - Integumentary Integumentary: Denies pruritus, Denies rash - Neurological Neurological: Denies numbness, Denies weakness - Psychiatric Psychiatric: Denies anxiety, Denies depression - Endocrine Endocrine: Denies fatigue, Denies weight change Past Medical History Past Medical History: Diabetes Mellitus, Deep Vein Thrombosis (DVT), GERD/Reflux, Hypertension Additional Past Medical History / Comment(s): DVT-10/22/16. KIDNEY STONE. VERTIGO AT TIMES. COVED VACCINATED History of Any Multi-Drug Resistant Organisms: None Reported Past Surgical History: Appendectomy, Cholecystectomy, Orthopedic Surgery Additional Past Surgical History / Comment(s): right achilles tendon repair, lithotripsy Past Anesthesia/Blood Transfusion Reactions: Motion Sickness Past Psychological History: No Psychological Hx Reported Smoking Status: Never smoker Past Alcohol Use History: None Reported Past Drug Use History: None Reported - Past Family History Mother Family Medical History: No Reported History Medications and Allergies Home Medications Medication Instructions Recorded Confirmed Type Omeprazole 20 mg PO BID 08/30/16 12/11/17 History Cholecalciferol [Vitamin D3] 1,000 unit PO DAILY 09/06/16 12/11/17 History ramipriL [Altace] 5 mg PO BID 09/06/16 12/11/17 History metFORMIN HCL ER [Glucophage Xr] 500 mg PO BID 10/22/16 12/11/17 History HYDROcodone/APAP 5-325MG [[place] 1 tab PO Q6HR PRN #10 tab 06/16/17 12/15/17 Rx 5-325] Tamsulosin [Flomax] 0.4 mg PO DAILY #30 cap 07/21/17 12/11/17 Rx Allergies Allergy/AdvReac Type Severity Reaction Status Date / Time No Known Allergies Allergy Verified 12/25/20 14:49 Surgical - Exam - General well developed, well nourished, no distress - Eyes PERRL - ENT no hearing loss - Cardiovascular Rhythm: regular - Abdomen Abdomen: soft, tender - Neurologic normal coordination, normal sensation - Musculoskeletal normal gait, normal posture - Psychiatric oriented to time, oriented to person, oriented to place, speech is normal, memory intact Results - Imaging CT scan - abdomen: report reviewed, image reviewed CT scan - pelvis: report reviewed, image reviewed Assessment and Plan Assessment: Impression: Bladder calculous. Renal calculous, DM Plan: Cystolithotripsy
[~2020-12-27 06:16] MED LIST changes: +DEXAMETHASONE SOD PHOSPHATE 4 MG/ML 1 ML VIAL IV ONE; +LIDOCAINE 1% (10MG/ML) FOR IV START INTRADERMA PRN; -LIDOCAINE 1% 20 ML VIAL (10MG/ML) FOR IV START INTRADERMA PRN; +MIDAZOLAM 2 MG/2 ML VIAL IV PRN; +ONDANSETRON 4 MG/2 ML VIAL IVP ONE; -Pre Op ABX Message 1 EACH MISC MISCELLANE ONE
[2020-12-27] MEDS ORDERED: LACTATED RINGERS 1,000 ML IV ONE (06:42)
[2020-12-27 06:50] LABS: Glucose,Whole Blood 142 mg/dL (75-99)
[2020-12-27] MEDS ORDERED: HYDROmorphone 0.5 MG/0.5 ML SYRINGE IVP PRN (07:00)
[2020-12-27] MEDS ORDERED: METOCLOPRAMIDE 5 MG/ML 2 ML VIAL IVP PRN (07:00)
[2020-12-27] MEDS ORDERED: LIDOCAINE 1% INJ 10MG/ML (20 ML MDV) ONE (07:30)
[2020-12-27] MEDS ORDERED: KETOROLAC 15 MG/ML 1 ML VIAL ONE (07:30)
[2020-12-27] MEDS ORDERED: fentaNYL (PF) 50 MCG/ML 2 ML AMP ONE (07:30)
[2020-12-27] MEDS ORDERED: MIDAZOLAM 2 MG/2 ML VIAL ONE (07:30)
[2020-12-27] MEDS ORDERED: KETAMINE 10 MG/ML 20 ML VIAL ONE (07:30)
[2020-12-27] MEDS ORDERED: PROPOFOL 10 MG/ML 20 ML VIAL IV ONE (07:30)
[2020-12-27] MEDS ORDERED: SUCCINYLCHOLINE CHLORIDE 100 MG/5 ML SYR IV ONE (07:30)
--- NOTE | 2020-12-27 08:35 | P.OP ---
Date of Procedure: 12/27/20 Preoperative Diagnosis: Bladder stone Postoperative Diagnosis: Same Procedure(s) Performed: Cystoscopy lithotripsy Anesthesia: [facility] Surgeon: Roib Lagunas Estimated Blood Loss (ml): 0 Pathology: other (Stone) Condition: stable Disposition: PACU Indications for Procedure: The patient is 50. He has a 2 cm bladder stone. He also renal stones. Persistent lithotripsy prior to eventual percutaneous nephrostolithotomy to the left kidney stones Description of Procedure: The patient is brought to the operating suite. He's given general anesthesia. He's placed lithotomy position with sterile prep and drape. Urethra is dilated 28 Australian with Nebo sounds. I passed the 21-Australian cystoscope into the urethra. It is normal prostate does show some middle lobe obstruction. The bladder oh trabeculated. There is a 2 cm bladder stone. With the 1000 laser probe the stone was broken into tiny fragments and flushed out of the bladder. There is no active bleeding. The bladder is intact. I removed the cystoscope. The bladder has been drained of stone. The patient's awake and returned recovery room good condition. He will be discharged home upon recovery and follow-up in the office in one week.
[2020-12-27 08:38] VITALS: TEMP 97
[2020-12-27 09:01] LABS: Glucose,Whole Blood 179 mg/dL (75-99)
[2020-12-27 11:08] VITALS: BP 121/83; PULSE 74; RESP 18
== END 2020-12-27 11:38 | disposition home or self-care (01) ==
LOC: OR 06:16
PROVIDERS: ATTEND Urology
DX: N21.0 Calculus in bladder (principal); N32.89 Other specified disorders of bladder; I10 Essential (primary) hypertension; E11.9 Type 2 diabetes mellitus without complications; K21.9 Gastro-esophageal reflux disease without esophagitis; Z86.718 Personal history of other venous thrombosis and embolism; Z79.899 Other long term (current) drug therapy
CPT/HCPCS: 82365; 52317; C1769; J2250; J1100; J0690; J2405; J2001; J3010; J1885; J0330; J2704

== ENCOUNTER → 2021-01-04 | Outpatient (CLI) | payer BC ==
--- NOTE | 2021-01-04 11:21 | XR ---
EXAMINATION TYPE: XR KUB DATE OF EXAM: 01/04/2021 11:10 AM CLINICAL HISTORY: Left-sided calculus TECHNIQUE: Two Supine KUB images of the abdomen are obtained. COMPARISON: Abdominal x-ray January 21, 2018. FINDINGS: Stable prominent left-sided pelvic phlebolith and smaller right-sided pelvic phleboliths. N o definitive nephrolithiasis. Cholecystectomy clips. Overall Nonobstructive bowel gas. Multilevel spurring in spine. IMPRESSION: As above.
== END | disposition home or self-care (01) ==
LOC: RADXRMAIN 10:57
PROVIDERS: ATTEND Internal Medicine Geriatric Medicine
DX: N20.0 Calculus of kidney (principal); Z90.49 Acquired absence of other specified parts of digestive tract
CPT/HCPCS: 74018

== ENCOUNTER → 2021-04-05 | Outpatient (CLI) | payer BC ==
--- NOTE | 2021-04-05 12:53 | XR ---
EXAMINATION TYPE: XR KUB DATE OF EXAM: 04/05/2021 Comparison: 01/04/2021 Clinical History: 50-year-old male N20.0 CALCULUS KIDNEY Findings: Multiple pelvic phleboliths, left greater than right. Bilateral renal calculi are present. These measure up to 6 mm on the right. A cluster present at left midpole, largest measuring 4 mm. Cholecystectomy clips. Stable calcification right lateral mid to lower abdomen. Mild stool burden. Nonobstructive bowel gas pattern. Impression: Bilateral renal calculi measuring up to 6 mm on the right. A cluster at the midpole on the left measu re up to 4 mm.
== END | disposition home or self-care (01) ==
LOC: RADXRMAIN 09:43
PROVIDERS: ATTEND Urology
DX: N20.0 Calculus of kidney (principal)
CPT/HCPCS: 74018

== ENCOUNTER → 2021-05-11 | Outpatient (CLI) | payer BC ==
--- NOTE | 2021-05-11 11:39 | CT ---
EXAMINATION TYPE: CT abdomen pelvis wo con DATE OF EXAM: 05/11/2021 COMPARISON: None HISTORY: Left flank pain, history of stones. CT DLP: 1081 mGycm Examination of the solid and hollow viscera is limited given the lack of contrast. FINDINGS: LUNG BASES: No evidence for nodule. No evidence for infiltrate. LIVER/GB: The gallbladder is unremarkable. No space-occupying hepatic lesion. PANCREAS: No pancreatic mass identified. No inflammatory process seen. SPLEEN: No evidence for splenomegaly. No intrasplenic lesions seen. ADRENALS: No adrenal nodules identified. No evidence for thickening. KIDNEYS: Noted are approximately 2 2 mm calculi in the region of the left UPJ. No significant hydrone phrosis appreciated. There appears to be a 2 mm calculus within the urinary bladder to the left of mi dline. There is a 7.7 mm calculus mid to lower pole left kidney. Additional 7 mm calculus mid pole le ft kidney 2 nonobstructing calculi lower pole right kidney measure up to 5 mm each. No right-sided hy dronephrosis. No distinct renal mass. BOWEL: Appendix has a normal appearance. No evidence of bowel obstruction. No inflammatory process. Lymph nodes: No evidence for adenopathy greater than 1 cm. Abdominal aorta: Atheromatous changes seen. No evidence for aneurysm. Genital organs: No significant abnormality. Other: No significant abnormality. IMPRESSION: NEPHROLITHIASIS AND LEFT UPJ CALCULI NOTED.
== END | disposition home or self-care (01) ==
LOC: RADCTMAIN 10:33
PROVIDERS: ATTEND Urology
DX: N20.2 Calculus of kidney with calculus of ureter (principal)
CPT/HCPCS: 74176

== ENCOUNTER → 2022-10-31 | Outpatient (CLI) | payer BC ==
--- NOTE | 2022-10-31 15:22 | US ---
EXAMINATION TYPE: US kidneys/renal and bladder DATE OF EXAM: 10/31/2022 COMPARISON: CT 05/11/2021. CLINICAL INDICATION: Male, 52 years old with history of N20.0 CALCULUS OF KIDNEY; History of kidney s tones EXAM MEASUREMENTS: Right Kidney: 10.7 x 4.7 x 4.9 Left Kidney: 11.0 x 5.6 x 4.3 Right Kidney: ?? possible ill-defined hypoechoic area mid/lower pole = 2.5 x 2.4 x 2.6cm Left Kidney: multiple stones, largest = 0.7cm. prominent collecting system Bladder: appears wnl Bilateral Jets seen: yes IMPRESSION: 1. Masslike area within the right kidney not definitively visualized on prior CT. Further evaluation with CT/MRI renal renal mass protocol is recommended for confirmation. 2. No obstructive uropathy. 3. Multiple left renal calculi as seen on prior CT. Right renal calculi are less well-visualized on today's exam.
== END | disposition home or self-care (01) ==
LOC: RADUSWWP 14:13
PROVIDERS: ATTEND Internal Medicine Geriatric Medicine
DX: N20.0 Calculus of kidney (principal)
CPT/HCPCS: 76770

== ENCOUNTER → 2022-11-07 | Outpatient (CLI) | payer BC ==
[2022-11-07 09:26] LABS: African American GFR (CKD) >90 (>60 ml/min/1.73 sqM); Blood Urea Nitrogen 28 mg/dL (9-20); Non-African American GFR(CKD) >90 (>60 ml/min/1.73 sqM)
--- NOTE | 2022-11-07 11:48 | CT ---
EXAMINATION TYPE: CT abdomen w con CT DLP: 1464.3 mGycm, Automated exposure control for dose reduction was used. DATE OF EXAM: 11/07/2022 9:57 AM COMPARISON: Renal ultrasound 10/31/2022, CT abdomen pelvis most recent from 05/11/2021 . CLINICAL INDICATION:Male, 52 years old with history of R93.429 abnormal findings on DI imaging of kid neys; abnormal right kidney is ultrasound TECHNIQUE: Standard CT of the abdomen following the administration of 100 cc of Isovue 300 IV contr ast material and oral contrast. Delayed imaging was performed. Coronal and sagittal reformats were pe rformed. FINDINGS: LOWER CHEST: Unremarkable ABDOMEN LIVER: Stable right hepatic dome 1 cm cyst. GALLBLADDER AND BILE DUCTS: The gallbladder is surgically absent. No biliary duct dilatation. PANCREAS: Unremarkable. SPLEEN: Unremarkable. ADRENAL GLANDS: Unremarkable. KIDNEYS AND URETERS: The kidneys enhance symmetrically without suspicious focal lesion. Redemonstrati on of an 0.8 x 0.4 cm calculus within the proximal left ureter with similar surrounding periureteral fat standing. There is periureteral thickening identified in this region. Additional 5 nonobstructive left renal calculi identified. No hydronephrosis. Contrast is demonstrated within both collecting sy stems on the delayed phase with passage past the site of calcifications in the left ureter. STOMACH AND BOWEL: Small hiatal hernia, duodenum is unremarkable. Enteric contrast reaches the mid sm all bowel. Distal colonic diverticulosis without evidence for acute diverticulitis. No evidence of nahomi wel obstruction. PERITONEUM: No evidence of pneumoperitoneum or free fluid. VASCULATURE: No evidence of aortic aneurysm. MUSCULOSKELETAL: No acute osseous abnormalities. No aggressive osseous lesions. LYMPH NODES: No gross evidence for lymphadenopathy. SOFT TISSUE/ABDOMINAL WALL: Unremarkable IMPRESSION: 1. No evidence for renal mass corresponding to ultrasound findings. Likely represents normal cortex. 2. Redemonstration of left proximal ureter 0.8 x 0.4 cm linear calculus with surrounding periureteral fat stranding and wall thickening possibly related to chronic inflammatory change versus other etiol ogies. No hydroureteronephrosis. Contrast passes this region on the delayed phase. Additional nonobst ructive left renal calculi. 3. Colonic diverticulosis without visualized acute diverticulitis.
== END | disposition home or self-care (01) ==
LOC: RADCTMAIN 08:41
PROVIDERS: ATTEND Internal Medicine Geriatric Medicine
DX: N20.2 Calculus of kidney with calculus of ureter (principal); K57.30 Diverticulosis of large intestine without perforation or abscess without bleeding; R93.429 Abnormal radiologic findings on diagnostic imaging of unspecified kidney
CPT/HCPCS: 82565; 84520; 74160; 36415; Q9967